=== PATIENT | female | born 1975 | race Caucasian/White ===

== ENCOUNTER 2016-07-08 20:36 | Emergency (ER) | payer OTHER ==
[~2016-07-08] VITALS: Ht 165.1 cm; Wt 68.2 kg
[~2016-07-08 20:36] MED LIST: ALBU8.5H IH; BENZ2TAB10 PO; DOCU-174 PO; FLUT44HFA IH; LURA40 PO; MONT10TA21 PO; OLAN15TA5 PO; OXYB5 PO; SODI650T PO; TOPI-37 PO
[2016-07-08] MEDS ORDERED: RISP0.5T13 PO (21:00)
[2016-07-08 23:25] LABS: APPEARANCE,URINE CLOUDY (CLEAR); GLUCOSE, URINE (UA) NEGATIVE (NEGATIVE); KETONES,URINE NEGATIVE (NEGATIVE); LEUKOCYTE ESTERASE ,URINE MODERATE (NEGATIVE); OCCULT BLOOD,URINE SMALL (NEGATIVE); PH,URINE 6.5 (5.0-8.0); PROTEIN,URINE NEGATIVE (NEGATIVE)
[2016-07-08 23:26] LABS: ADD UA MICROSCOPIC YES
[2016-07-08 23:35] LABS: SQUAMOUS EPITHELIAL CELL,UR Few /LPF (None Seen); WBC,URINE 26-50 /HPF (0-5)
[2016-07-09] MEDS ORDERED: NITROFURANTOIN/NITROFURAN MAC 100 MG CAPSULE [MACROBID] PO ONE (01:15)
[2016-07-09] MEDS ORDERED: PHENAZOPYRIDINE HCL 100 MG TABLET PO ONE (01:15)
[2016-07-09 01:28] VITALS: BP 132/75
== END 2016-07-09 01:45 | disposition home or self-care (01) ==
LOC: EMS 20:43
DX: N39.0 Urinary tract infection, site not specified (principal); F20.9 Schizophrenia, unspecified
CPT/HCPCS: 87086; 87147; 99284

== ENCOUNTER 2016-08-27 23:58 | Emergency (ER) | payer OTHER ==
[~2016-08-27] VITALS: Ht 162.6 cm; Wt 77.3 kg
[~2016-08-27 23:58] MED LIST changes: +RISP0.5T13 PO
[2016-08-28 01:51] VITALS: BP 129/74
== END 2016-08-28 02:19 | disposition home or self-care (01) ==
LOC: EMS 23:59
DX: F22 Delusional disorders (principal); F20.9 Schizophrenia, unspecified
CPT/HCPCS: 99283

== ENCOUNTER 2019-03-18 18:59 | Inpatient (IN) | payer MEDICAID ==
[~2019-03-18] VITALS: Ht 160 cm; Wt 90.5 kg
[~2019-03-18 18:59] MED LIST changes: -ALBU8.5H IH; +ALBU8.5H8 IH; -DOCU-174 PO; +DOCU100C34 PO; -RISP0.5T13 PO; +RISP0.5T61 PO; -TOPI-37 PO; +TOPI100T38 PO
[2019-03-18] MEDS ORDERED: LORazepam 2 MG TABLET PO PRN (19:45)
[2019-03-18] MEDS ORDERED: ZOLPIDEM TARTRATE 10 MG TABLET PO PRN (19:45)
[2019-03-18] MEDS ORDERED: HALOPERIDOL 5 MG TABLET PO PRN (19:45)
[2019-03-18] MEDS ORDERED: INFLUENZA VIRUS VACCINE QVS 2019-20 (3YR+)/PF 60 MCG/0.5 ML SYRINGE IM ONE (20:45)
[2019-03-18 21:02] VITALS: BP 131/75
[2019-03-19 00:53] VITALS: BP 142/86
[2019-03-19] MEDS ORDERED: MAG HYDROX/AL HYDROX/SIMETH ES 30 ML SUSPENSION UDCUP PO PRN (07:15)
[2019-03-19] MEDS ORDERED: LOPERAMIDE HCL 2 MG CAPSULE PO PRN (07:15)
[2019-03-19] MEDS ORDERED: BACITRACIN 28.4 GM OINTMENT TP PRN (07:15)
[2019-03-19] MEDS ORDERED: ALBUTEROL SULFATE HFA 90 MCG/PUFF 8 GM INHALER IH PRN (07:15)
[2019-03-19] MEDS ORDERED: ACETAMINOPHEN 325 MG TABLET PO PRN (07:15)
[2019-03-19] MEDS ORDERED: BENZOCAINE/MENTHOL LOZENGE MM PRN (07:15)
[2019-03-19] MEDS ORDERED: PETROLATUM,WHITE 28 GM JELLY TP PRN (07:15)
[2019-03-19] MEDS ORDERED: ONDANSETRON HCL 4 MG TABLET PO PRN (07:15)
[2019-03-19] MEDS ORDERED: CloNIDine HCL 0.1 MG TABLET PO PRN (07:15)
[2019-03-19] MEDS ORDERED: MAGNESIUM HYDROXIDE SUSPENSION 30 ML UDCUP PO PRN (07:15)
[2019-03-19 07:40] LABS: BASOPHILS % (AUTO) 0.6 % (0.0-2.0); EOSINOPHILS % (AUTO) 1.1 % (1.0-6.0); HEMATOCRIT 37.5 % (36-46); HEMOGLOBIN 12.6 g/dL (12.0-16.0); LYMPHOCYTES # (AUTO) 1.8 K/uL (1.0-4.8); LYMPHOCYTES % (AUTO) 17.8 % (22.0-44.0); MEAN CORPUSCULAR HEMOGLOBIN 29.3 pg (26.0-34.0); MEAN CORPUSCULAR HGB CONC 33.5 G/dL (31.0-37.0); MEAN CORPUSCULAR VOLUME 88 fL (80-100); MONOCYTES # (AUTO) 0.6 K/uL (0.1-1.0); MONOCYTES % (AUTO) 5.9 % (2.0-9.0); NEUTROPHILS # (AUTO) 7.6 K/uL (1.8-7.7); NEUTROPHILS % (AUTO) 74.6 % (40.0-70.0); PLATELET COUNT (AUTO) 404 K/uL (150-450); RED BLOOD CELL COUNT(AUTO) 4.28 MIL/uL (4.00-5.20); RED CELL DISTRIBUTION WIDTH 14.5 % (11.5-14.5)
[2019-03-19 08:10] VITALS: BP 128/68
[2019-03-19 08:14] LABS: ALANINE AMINOTRANSFERASE 25 U/L (12-78); ANION GAP 11 mmol/L (8-16); CARBON DIOXIDE 23 mmol/L (22-29); CHLORIDE 108 mmol/L (98-107); CHOLESTEROL 144 mg/dL (131-200); CREATININE 0.55 mg/dL (0.60-1.30); GLOMERULAR FILTR. RATE CALC > 60 mL/min (>60); POTASSIUM 4.1 mmol/L (3.5-5.1); SODIUM SERUM 142 mmol/L (136-145)
[2019-03-19 08:32] LABS: HEMOGLOBIN A1C 5.4 % (4.5-6.2)
[2019-03-19 08:37] LABS: ALBUMIN 3.2 g/dL (3.4-5.0); ALKALINE PHOSPHATASE 88 U/L (46-116); ASPARTATE AMINOTRANSFERASE 15 U/L (15-37); BILIRUBIN,TOTAL 0.3 mg/dL (0.1-1.0); CHOL/HDL RATIO 3.4 (3.9-5.7); FREE T4 (FREE THYROXINE) 1.22 ng/dL (0.76-1.46); GLUCOSE,RANDOM 92 mg/dL (70-110); HDL CHOLESTEROL 42 mg/dL (40-60); LDL CHOL (CALC.) 95 mg/dL (0-130); THYROID STIMULATING HORMONE 3.25 uIU/mL (0.36-3.74); TOTAL PROTEIN, SERUM 7.6 g/dL (6.4-8.2); TRIGLYCERIDES 33 mg/dL (15-150); UREA NITROGEN, BLOOD 9 mg/dL (7-18)
[2019-03-19] MEDS: BENZTROPINE MESYLATE 1 MG TABLET PO SCH ×2 (08:47→16:31)
[2019-03-19] MEDS: DOCUSATE SODIUM 100 MG CAPSULE PO SCH (08:47)
[2019-03-19] MEDS: OMEPRAZOLE 20 MG CAPSULE PO SCH (08:47)
[2019-03-19] MEDS: OXYBUTYNIN CHLORIDE 5 MG TABLET PO SCH (08:47)
[2019-03-19] MEDS: MONTELUKAST SODIUM 10 MG TABLET PO SCH (09:00)
[2019-03-19 20:36] VITALS: BP 133/90
[2019-03-19] MEDS: FLUTICASONE FUROATE 100 MCG/INH INHALER [14] IH SCH (21:00)
[2019-03-20 05:43] VITALS: BP 125/82
[2019-03-20 08:17] VITALS: BP 145/97
[2019-03-20] MEDS: MONTELUKAST SODIUM 10 MG TABLET PO SCH (08:33)
[2019-03-20] MEDS: BENZTROPINE MESYLATE 1 MG TABLET PO SCH ×2 (08:34→16:55)
[2019-03-20] MEDS: DOCUSATE SODIUM 100 MG CAPSULE PO SCH (08:34)
[2019-03-20] MEDS: OXYBUTYNIN CHLORIDE 5 MG TABLET PO SCH (08:34)
[2019-03-20] MEDS: OMEPRAZOLE 20 MG CAPSULE PO SCH (08:34)
[2019-03-20 14:02] VITALS: BP 128/80
[2019-03-20] MEDS: IBUPROFEN 600 MG TABLET PO PRN (14:02)
[2019-03-20 16:32] VITALS: BP 149/92
[2019-03-20 20:37] VITALS: BP 117/69
[2019-03-20] MEDS: FLUTICASONE FUROATE 100 MCG/INH INHALER [14] IH SCH (21:34)
[2019-03-21 00:49] VITALS: BP 120/82
[2019-03-21 08:05] VITALS: BP 114/89
[2019-03-21] MEDS: DOCUSATE SODIUM 100 MG CAPSULE PO SCH (08:17)
[2019-03-21] MEDS: OMEPRAZOLE 20 MG CAPSULE PO SCH (08:22)
[2019-03-21] MEDS: OXYBUTYNIN CHLORIDE 5 MG TABLET PO SCH (08:22)
[2019-03-21] MEDS: MONTELUKAST SODIUM 10 MG TABLET PO SCH (08:22)
[2019-03-21] MEDS: BENZTROPINE MESYLATE 1 MG TABLET PO SCH ×2 (08:22→17:07)
[2019-03-21] MEDS ORDERED: PALIPERIDONE PALMITATE 156 MG/ML SYRINGE IM ONE (09:00)
[2019-03-21 16:10] VITALS: BP 119/60
[2019-03-21] MEDS: FLUTICASONE FUROATE 100 MCG/INH INHALER [14] IH SCH (20:21)
[2019-03-21] MEDS ORDERED: INFLUENZA VIRUS VACCINE QVS 2019-20 (3YR+)/PF 60 MCG/0.5 ML SYRINGE IM ONE (20:45)
[2019-03-22 08:19] VITALS: BP 125/88
[2019-03-22] MEDS: BENZTROPINE MESYLATE 1 MG TABLET PO SCH ×2 (08:32→16:23)
[2019-03-22] MEDS: MONTELUKAST SODIUM 10 MG TABLET PO SCH (08:32)
[2019-03-22] MEDS: OMEPRAZOLE 20 MG CAPSULE PO SCH (08:32)
[2019-03-22] MEDS: DOCUSATE SODIUM 100 MG CAPSULE PO SCH (08:32)
[2019-03-22] MEDS: OXYBUTYNIN CHLORIDE 5 MG TABLET PO SCH (09:45)
[2019-03-22 16:01] VITALS: BP 122/80
[2019-03-22] MEDS: FLUTICASONE FUROATE 100 MCG/INH INHALER [14] IH SCH (20:22)
[2019-03-23 03:34] VITALS: BP 128/74
[2019-03-23] MEDS: BENZTROPINE MESYLATE 1 MG TABLET PO SCH ×2 (08:39→16:50)
[2019-03-23] MEDS: OXYBUTYNIN CHLORIDE 5 MG TABLET PO SCH (08:39)
[2019-03-23] MEDS: DOCUSATE SODIUM 100 MG CAPSULE PO SCH (08:39)
[2019-03-23] MEDS: OMEPRAZOLE 20 MG CAPSULE PO SCH (08:39)
[2019-03-23] MEDS: MONTELUKAST SODIUM 10 MG TABLET PO SCH (08:39)
[2019-03-23 08:45] VITALS: BP 136/92
[2019-03-23] MEDS: IBUPROFEN 600 MG TABLET PO PRN (09:50)
[2019-03-23] MEDS ORDERED: BENZ1TAB10 PO (13:57)
[2019-03-23] MEDS ORDERED: PALI156D IM (13:57)
[2019-03-23] MEDS ORDERED: DOCU-275 PO (13:58)
[2019-03-23] MEDS ORDERED: OMEP20 PO (13:58)
[2019-03-23] MEDS ORDERED: FLUT100B IH (14:00)
[2019-03-23 16:03] VITALS: BP 129/86
[2019-03-23] MEDS: FLUTICASONE FUROATE 100 MCG/INH INHALER [14] IH SCH (20:48)
[2019-03-24 02:36] VITALS: BP 143/96
[2019-03-24 08:17] VITALS: BP 135/93
[2019-03-24] MEDS: BENZTROPINE MESYLATE 1 MG TABLET PO SCH (09:15)
[2019-03-24] MEDS: OXYBUTYNIN CHLORIDE 5 MG TABLET PO SCH (09:16)
[2019-03-24] MEDS: OMEPRAZOLE 20 MG CAPSULE PO SCH (09:16)
[2019-03-24] MEDS: DOCUSATE SODIUM 100 MG CAPSULE PO SCH (09:16)
[2019-03-24] MEDS: MONTELUKAST SODIUM 10 MG TABLET PO SCH (09:16)
== END 2019-03-24 10:00 | disposition home or self-care (01) | DRG 750 ==
LOC: B3A 19:45 → B2S 03-20 19:20
PROVIDERS: ADMIT Psychiatry & Neurology Psychiatry; ATTEND Psychiatry & Neurology Psychiatry
DX: F25.9 Schizoaffective disorder, unspecified (principal); F41.9 Anxiety disorder, unspecified; K59.00 Constipation, unspecified; G47.00 Insomnia, unspecified; Z90.49 Acquired absence of other specified parts of digestive tract; Z98.890 Other specified postprocedural states; Z28.21 Immunization not carried out because of patient refusal
CPT/HCPCS: 83036; 84439; 84443; 90686; J3535

== ENCOUNTER 2019-04-24 14:56 | Inpatient (IN) | payer MEDICAID ==
[~2019-04-24] VITALS: Ht 160 cm; Wt 90.0 kg
[~2019-04-24 14:56] MED LIST changes: -ALBU8.5H8 IH; +BENZ1TAB10 PO; -BENZ2TAB10 PO; +DOCU-275 PO; -DOCU100C34 PO; +FLUT100B IH; -FLUT44HFA IH; -LURA40 PO; -OLAN15TA5 PO; +OMEP20 PO; +PALI156D IM; -RISP0.5T61 PO; -SODI650T PO; -TOPI100T38 PO
[2019-04-24] MEDS ORDERED: HALOPERIDOL 5 MG TABLET PO PRN (17:15)
[2019-04-24] MEDS ORDERED: ZOLPIDEM TARTRATE 10 MG TABLET PO PRN (17:15)
[2019-04-24] MEDS ORDERED: HALOPERIDOL LACTATE 5 MG/ML VIAL IM ONE (17:15)
[2019-04-24] MEDS ORDERED: DiphenhydrAMINE HCL 50 MG/ML VIAL IM ONE (17:15)
[2019-04-24] MEDS ORDERED: LORazepam 2 MG/ML VIAL IM ONE (17:15)
[2019-04-24] MEDS ORDERED: LORazepam 2 MG/ML VIAL ONE (17:37)
[2019-04-24] MEDS ORDERED: DiphenhydrAMINE HCL 50 MG/ML VIAL ONE (17:37)
[2019-04-24] MEDS ORDERED: HALOPERIDOL LACTATE 5 MG/ML VIAL ONE (17:37)
[2019-04-24 17:53] VITALS: BP 132/96
[2019-04-25 04:59] VITALS: BP 125/75
[2019-04-25 07:58] LABS: BASOPHILS % (AUTO) 0.7 % (0.0-2.0); EOSINOPHILS % (AUTO) 1.8 % (1.0-6.0); HEMATOCRIT 39.7 % (36-46); HEMOGLOBIN 13.5 g/dL (12.0-16.0); LYMPHOCYTES # (AUTO) 2.3 K/uL (1.0-4.8); LYMPHOCYTES % (AUTO) 22.5 % (22.0-44.0); MEAN CORPUSCULAR HEMOGLOBIN 29.8 pg (26.0-34.0); MEAN CORPUSCULAR HGB CONC 33.9 G/dL (31.0-37.0); MEAN CORPUSCULAR VOLUME 88 fL (80-100); MONOCYTES # (AUTO) 0.7 K/uL (0.1-1.0); MONOCYTES % (AUTO) 6.7 % (2.0-9.0); NEUTROPHILS # (AUTO) 6.9 K/uL (1.8-7.7); NEUTROPHILS % (AUTO) 68.3 % (40.0-70.0); PLATELET COUNT (AUTO) 445 K/uL (150-450); RED BLOOD CELL COUNT(AUTO) 4.51 MIL/uL (4.00-5.20); RED CELL DISTRIBUTION WIDTH 14.3 % (11.5-14.5)
[2019-04-25 08:31] VITALS: BP 111/70
[2019-04-25 08:45] LABS: HEMOGLOBIN A1C 5.4 % (3.8-5.6)
[2019-04-25 08:52] LABS: ALANINE AMINOTRANSFERASE 26 U/L (12-78); ALBUMIN 3.2 g/dL (3.4-5.0); ALKALINE PHOSPHATASE 85 U/L (46-116); ANION GAP 8 mmol/L (8-16); ASPARTATE AMINOTRANSFERASE 11 U/L (15-37); BILIRUBIN,TOTAL 0.3 mg/dL (0.1-1.0); CALCIUM, TOTAL 9.7 mg/dL (8.8-10.5); CARBON DIOXIDE 25 mmol/L (22-29); CHLORIDE 109 mmol/L (98-107); CHOL/HDL RATIO 4.6 (3.9-5.7); CHOLESTEROL 162 mg/dL (131-200); CREATININE 0.76 mg/dL (0.60-1.30); FREE T4 (FREE THYROXINE) 1.33 ng/dL (0.76-1.46); GLOMERULAR FILTR. RATE CALC > 60 mL/min (>60); GLUCOSE,RANDOM 93 mg/dL (70-110); HDL CHOLESTEROL 35 mg/dL (40-60); LDL CHOL (CALC.) 113 mg/dL (0-130); POTASSIUM 3.6 mmol/L (3.5-5.1); SODIUM SERUM 142 mmol/L (136-145); THYROID STIMULATING HORMONE 1.64 uIU/mL (0.36-3.74); TOTAL PROTEIN, SERUM 7.6 g/dL (6.4-8.2); TRIGLYCERIDES 69 mg/dL (15-150); UREA NITROGEN, BLOOD 10 mg/dL (7-18)
[2019-04-25] MEDS ORDERED: BENZOCAINE/MENTHOL LOZENGE MM PRN (09:30)
[2019-04-25] MEDS ORDERED: CloNIDine HCL 0.1 MG TABLET PO PRN (09:30)
[2019-04-25] MEDS ORDERED: MAGNESIUM HYDROXIDE SUSPENSION 30 ML UDCUP PO PRN (09:30)
[2019-04-25] MEDS ORDERED: PETROLATUM,WHITE 28 GM JELLY TP PRN (09:30)
[2019-04-25] MEDS ORDERED: ALBUTEROL SULFATE HFA 90 MCG/PUFF 8 GM INHALER IH PRN (09:30)
[2019-04-25] MEDS ORDERED: ACETAMINOPHEN 325 MG TABLET PO PRN (09:30)
[2019-04-25] MEDS ORDERED: ONDANSETRON HCL 4 MG TABLET PO PRN (09:30)
[2019-04-25] MEDS ORDERED: MAG HYDROX/AL HYDROX/SIMETH ES 30 ML SUSPENSION UDCUP PO PRN (09:30)
[2019-04-25] MEDS ORDERED: LOPERAMIDE HCL 2 MG CAPSULE PO PRN (09:30)
[2019-04-25] MEDS ORDERED: BACITRACIN 28.4 GM OINTMENT TP PRN (09:30)
[2019-04-25 16:25] VITALS: BP 125/86
[2019-04-25 20:32] VITALS: BP 118/77
[2019-04-25] MEDS: IBUPROFEN 600 MG TABLET PO PRN (20:57)
[2019-04-25] MEDS: FLUTICASONE FUROATE 100 MCG/INH INHALER [14] IH SCH (21:00)
[2019-04-26 05:49] VITALS: BP 110/70
[2019-04-26 08:20] VITALS: BP 137/75
[2019-04-26] MEDS: OMEPRAZOLE 20 MG CAPSULE PO SCH (08:24)
[2019-04-26] MEDS: DOCUSATE SODIUM 100 MG CAPSULE PO SCH (08:24)
[2019-04-26] MEDS: MONTELUKAST SODIUM 10 MG TABLET PO SCH (08:24)
[2019-04-26] MEDS: OXYBUTYNIN CHLORIDE 5 MG TABLET PO SCH (08:24)
[2019-04-26] MEDS: LORazepam 2 MG TABLET PO PRN (08:34)
[2019-04-26 16:42] VITALS: BP 145/100
[2019-04-26] MEDS: FLUTICASONE FUROATE 100 MCG/INH INHALER [14] IH SCH (21:23)
[2019-04-27 05:39] VITALS: BP 120/72
[2019-04-27] MEDS: DOCUSATE SODIUM 100 MG CAPSULE PO SCH (08:14)
[2019-04-27] MEDS: MONTELUKAST SODIUM 10 MG TABLET PO SCH (08:14)
[2019-04-27] MEDS: OMEPRAZOLE 20 MG CAPSULE PO SCH (08:14)
[2019-04-27] MEDS: OXYBUTYNIN CHLORIDE 5 MG TABLET PO SCH (08:15)
[2019-04-27] MEDS: LORazepam 2 MG TABLET PO PRN (08:16)
[2019-04-27 08:39] VITALS: BP 117/80
[2019-04-27 16:14] VITALS: BP 126/74
[2019-04-27 16:19] VITALS: BP 126/74
[2019-04-27] MEDS: FLUTICASONE FUROATE 100 MCG/INH INHALER [14] IH SCH (20:30)
[2019-04-27] MEDS: IBUPROFEN 600 MG TABLET PO PRN (21:07)
[2019-04-27 21:08] VITALS: BP 128/86
[2019-04-28 05:14] VITALS: BP 112/75
[2019-04-28] MEDS: OXYBUTYNIN CHLORIDE 5 MG TABLET PO SCH (08:12)
[2019-04-28] MEDS: DOCUSATE SODIUM 100 MG CAPSULE PO SCH (08:12)
[2019-04-28] MEDS: OMEPRAZOLE 20 MG CAPSULE PO SCH (08:12)
[2019-04-28] MEDS: MONTELUKAST SODIUM 10 MG TABLET PO SCH (08:12)
[2019-04-28 08:40] VITALS: BP 144/75
[2019-04-28 13:36] VITALS: BP 127/90
[2019-04-28] MEDS ORDERED: RISPC50 IM (15:30)
[2019-04-28 17:25] VITALS: BP 145/95
== END 2019-04-28 17:50 | disposition home or self-care (01) | DRG 750 ==
LOC: B3A 17:16
PROVIDERS: ADMIT Psychiatry & Neurology Psychiatry; ATTEND Psychiatry & Neurology Psychiatry
DX: F25.9 Schizoaffective disorder, unspecified (principal); F41.9 Anxiety disorder, unspecified; G47.00 Insomnia, unspecified; K59.00 Constipation, unspecified
CPT/HCPCS: 83036; 84439; 84443; 87081; J1200; J1630; J2060

== ENCOUNTER 2019-05-14 00:17 | Inpatient (IN) | payer MEDICAID, OTHER ==
[~2019-05-14] VITALS: Ht 160 cm; Wt 86.6 kg
[~2019-05-14 00:17] MED LIST changes: -BENZ1TAB10 PO; -FLUT100B IH; -PALI156D IM; +RISPC50 IM
[2019-05-14] MEDS ORDERED: MULT-723 PO (00:30)
[2019-05-14] MEDS ORDERED: OMEG-136 PO (00:30)
[2019-05-14] MEDS ORDERED: OXYB5XL PO (00:30)
[2019-05-14] MEDS ORDERED: BENZ1TAB10 PO (00:30)
[2019-05-14] MEDS ORDERED: LEVE500T8 PO (00:30)
[2019-05-14] MEDS ORDERED: VIT1TABL66 PO (00:30)
[2019-05-14] MEDS ORDERED: MONT4GRA2 PO (00:30)
[2019-05-14] MEDS ORDERED: OMEP20 PO (00:30)
[2019-05-14 01:03] LABS: BASOPHILS % (AUTO) 0.8 % (0.0-2.0); EOSINOPHILS % (AUTO) 1.2 % (1.0-6.0); HEMATOCRIT 36.3 % (36-46); HEMOGLOBIN 12.4 g/dL (12.0-16.0); LYMPHOCYTES # (AUTO) 1.4 K/uL (1.0-4.8); LYMPHOCYTES % (AUTO) 14.3 % (22.0-44.0); MEAN CORPUSCULAR HEMOGLOBIN 29.4 pg (26.0-34.0); MEAN CORPUSCULAR HGB CONC 34.1 G/dL (31.0-37.0); MEAN CORPUSCULAR VOLUME 86 fL (80-100); MONOCYTES # (AUTO) 0.6 K/uL (0.1-1.0); MONOCYTES % (AUTO) 6.1 % (2.0-9.0); NEUTROPHILS # (AUTO) 7.8 K/uL (1.8-7.7); NEUTROPHILS % (AUTO) 77.6 % (40.0-70.0); PLATELET COUNT (AUTO) 411 K/uL (150-450); RED BLOOD CELL COUNT(AUTO) 4.22 MIL/uL (4.00-5.20); RED CELL DISTRIBUTION WIDTH 14.3 % (11.5-14.5)
[2019-05-14 01:10] LABS: ANION GAP 7 mmol/L (8-16); CALCIUM, TOTAL 8.6 mg/dL (8.8-10.5); CARBON DIOXIDE 26 mmol/L (22-29); CHLORIDE 104 mmol/L (98-107); CREATININE 1.19 mg/dL (0.60-1.30); GLOMERULAR FILTR. RATE CALC 50 mL/min (>60); GLUCOSE,RANDOM 143 mg/dL (70-110); POTASSIUM 3.3 mmol/L (3.5-5.1); SODIUM SERUM 137 mmol/L (136-145); UREA NITROGEN, BLOOD 9 mg/dL (7-18)
[2019-05-14 01:16] LABS: ALANINE AMINOTRANSFERASE 36 U/L (12-78); ALBUMIN 3.3 g/dL (3.4-5.0); ALKALINE PHOSPHATASE 86 U/L (46-116); ASPARTATE AMINOTRANSFERASE 21 U/L (15-37); BILIRUBIN,TOTAL 0.2 mg/dL (0.1-1.0); TOTAL PROTEIN, SERUM 7.2 g/dL (6.4-8.2)
[2019-05-14] MEDS ORDERED: POTASSIUM CHLORIDE 20 MEQ ER TABLET PO ONE (02:15)
[2019-05-14 06:00] VITALS: BP 101/90
[2019-05-14] MEDS: LORazepam 2 MG TABLET PO PRN (06:57)
[2019-05-14] MEDS: HALOPERIDOL 5 MG TABLET PO PRN (06:57)
[2019-05-14] MEDS ORDERED: CloNIDine HCL 0.1 MG TABLET PO PRN (08:30)
[2019-05-14] MEDS ORDERED: BENZOCAINE/MENTHOL LOZENGE MM PRN (08:30)
[2019-05-14] MEDS ORDERED: ALBUTEROL SULFATE HFA 90 MCG/PUFF 8 GM INHALER IH PRN (08:30)
[2019-05-14] MEDS ORDERED: MAGNESIUM HYDROXIDE SUSPENSION 30 ML UDCUP PO PRN (08:30)
[2019-05-14] MEDS ORDERED: PETROLATUM,WHITE 28 GM JELLY TP PRN (08:30)
[2019-05-14] MEDS ORDERED: ONDANSETRON HCL 4 MG TABLET PO PRN (08:30)
[2019-05-14] MEDS ORDERED: LOPERAMIDE HCL 2 MG CAPSULE PO PRN (08:30)
[2019-05-14] MEDS ORDERED: OMEPRAZOLE 20 MG CAPSULE PO PRN (08:30)
[2019-05-14] MEDS ORDERED: DOCUSATE SODIUM 100 MG CAPSULE PO PRN (08:30)
[2019-05-14] MEDS ORDERED: BACITRACIN 28.4 GM OINTMENT TP PRN (08:30)
[2019-05-14 08:44] VITALS: BP 120/72
[2019-05-14] MEDS: LevETIRAcetam 500 MG TABLET PO SCH ×2 (09:36→16:25)
[2019-05-14] MEDS: MONTELUKAST SODIUM 10 MG TABLET PO SCH (10:40)
[2019-05-14] MEDS: OXYBUTYNIN CHLORIDE 5 MG ER TABLET PO SCH (10:40)
[2019-05-14 16:17] VITALS: BP 129/78
[2019-05-15 04:44] VITALS: BP 106/93
[2019-05-15] MEDS: OXYBUTYNIN CHLORIDE 5 MG ER TABLET PO SCH (08:27)
[2019-05-15] MEDS: BENZTROPINE MESYLATE 1 MG TABLET PO SCH ×2 (08:27→16:42)
[2019-05-15] MEDS: MONTELUKAST SODIUM 10 MG TABLET PO SCH (08:27)
[2019-05-15 08:28] VITALS: BP 145/74
[2019-05-15] MEDS: LevETIRAcetam 500 MG TABLET PO SCH ×2 (08:28→16:42)
[2019-05-15] MEDS: RisperiDONE MICROSPHERES 50 MG/2 ML SYRINGE IM SCH (09:00)
[2019-05-15] MEDS: OMEPRAZOLE 20 MG CAPSULE PO SCH (09:04)
[2019-05-15] MEDS: LORazepam 2 MG TABLET PO PRN (09:04)
[2019-05-15 14:27] VITALS: BP 134/82
[2019-05-15 16:08] VITALS: BP 145/70
[2019-05-16 05:21] VITALS: BP 132/68
[2019-05-16 08:00] VITALS: BP 112/80
[2019-05-16] MEDS: BENZTROPINE MESYLATE 1 MG TABLET PO SCH ×2 (08:16→16:52)
[2019-05-16] MEDS: LevETIRAcetam 500 MG TABLET PO SCH ×2 (08:17→16:52)
[2019-05-16] MEDS: MONTELUKAST SODIUM 10 MG TABLET PO SCH (08:17)
[2019-05-16] MEDS: OMEPRAZOLE 20 MG CAPSULE PO SCH (08:17)
[2019-05-16] MEDS: OXYBUTYNIN CHLORIDE 5 MG ER TABLET PO SCH (08:17)
[2019-05-16] MEDS: LORazepam 2 MG TABLET PO PRN (08:18)
[2019-05-16] MEDS: RisperiDONE MICROSPHERES 50 MG/2 ML SYRINGE IM SCH (12:49)
[2019-05-16 16:44] VITALS: BP 130/70
[2019-05-17 05:27] VITALS: BP 125/64
[2019-05-17 08:01] LABS: CHOL/HDL RATIO 3.9 (3.9-5.7)
[2019-05-17 08:28] VITALS: BP 126/92
[2019-05-17] MEDS: OMEPRAZOLE 20 MG CAPSULE PO SCH (08:54)
[2019-05-17] MEDS: OXYBUTYNIN CHLORIDE 5 MG ER TABLET PO SCH (08:54)
[2019-05-17] MEDS: LevETIRAcetam 500 MG TABLET PO SCH ×2 (08:54→17:00)
[2019-05-17] MEDS: BENZTROPINE MESYLATE 1 MG TABLET PO SCH ×2 (08:55→17:00)
[2019-05-17] MEDS: MONTELUKAST SODIUM 10 MG TABLET PO SCH (08:55)
[2019-05-17 16:32] VITALS: BP 128/91
[2019-05-17] MEDS: ZOLPIDEM TARTRATE 10 MG TABLET PO PRN (20:33)
[2019-05-18 05:06] VITALS: BP 140/88
[2019-05-18 08:07] VITALS: BP 124/84
[2019-05-18] MEDS: MONTELUKAST SODIUM 10 MG TABLET PO SCH (08:36)
[2019-05-18] MEDS: OMEPRAZOLE 20 MG CAPSULE PO SCH (08:36)
[2019-05-18] MEDS: OXYBUTYNIN CHLORIDE 5 MG ER TABLET PO SCH (08:36)
[2019-05-18] MEDS: BENZTROPINE MESYLATE 1 MG TABLET PO SCH ×2 (08:36→16:39)
[2019-05-18] MEDS: LevETIRAcetam 500 MG TABLET PO SCH ×2 (08:36→16:39)
[2019-05-18 16:14] VITALS: BP 138/86
[2019-05-18] MEDS: LORazepam 2 MG TABLET PO PRN (16:39)
[2019-05-19 06:29] VITALS: BP 114/84
[2019-05-19 08:00] VITALS: BP 110/74
[2019-05-19] MEDS: BENZTROPINE MESYLATE 1 MG TABLET PO SCH ×2 (08:24→16:46)
[2019-05-19] MEDS: OXYBUTYNIN CHLORIDE 5 MG ER TABLET PO SCH (08:25)
[2019-05-19] MEDS: MONTELUKAST SODIUM 10 MG TABLET PO SCH (08:25)
[2019-05-19] MEDS: OMEPRAZOLE 20 MG CAPSULE PO SCH (08:25)
[2019-05-19] MEDS: LevETIRAcetam 500 MG TABLET PO SCH ×2 (08:25→16:46)
[2019-05-19] MEDS: LORazepam 2 MG TABLET PO PRN (08:26)
[2019-05-19] MEDS: HALOPERIDOL 5 MG TABLET PO PRN (09:32)
[2019-05-20 05:04] VITALS: BP 104/66
[2019-05-20 07:54] LABS: BAND NEUTROPHILS % (MANUAL) 0 % (0-5)
[2019-05-20 07:57] LABS: HEMATOCRIT 40.2 % (36-46); HEMOGLOBIN 13.3 g/dL (12.0-16.0); MEAN CORPUSCULAR HEMOGLOBIN 28.9 pg (26.0-34.0); MEAN CORPUSCULAR HGB CONC 33.1 G/dL (31.0-37.0); MEAN CORPUSCULAR VOLUME 88 fL (80-100); PLATELET COUNT (AUTO) 462 K/uL (150-450); RED BLOOD CELL COUNT(AUTO) 4.59 MIL/uL (4.00-5.20); RED CELL DISTRIBUTION WIDTH 14.7 % (11.5-14.5)
[2019-05-20 08:08] LABS: ANION GAP 9 mmol/L (8-16); CALCIUM, TOTAL 8.7 mg/dL (8.8-10.5); CARBON DIOXIDE 25 mmol/L (22-29); CHLORIDE 106 mmol/L (98-107); CREATININE 0.76 mg/dL (0.60-1.30); GLOMERULAR FILTR. RATE CALC > 60 mL/min (>60); GLUCOSE,RANDOM 94 mg/dL (70-110); PHOSPHORUS 3.2 mg/dL (2.5-4.9); POTASSIUM 4.1 mmol/L (3.5-5.1); SODIUM SERUM 140 mmol/L (136-145); UREA NITROGEN, BLOOD 8 mg/dL (7-18)
[2019-05-20] MEDS: BENZTROPINE MESYLATE 1 MG TABLET PO SCH ×2 (08:22→16:22)
[2019-05-20] MEDS: LevETIRAcetam 500 MG TABLET PO SCH ×2 (08:22→16:22)
[2019-05-20] MEDS: OMEPRAZOLE 20 MG CAPSULE PO SCH (08:22)
[2019-05-20] MEDS: OXYBUTYNIN CHLORIDE 5 MG ER TABLET PO SCH (08:23)
[2019-05-20] MEDS: LORazepam 2 MG TABLET PO PRN (08:23)
[2019-05-20] MEDS: MONTELUKAST SODIUM 10 MG TABLET PO SCH (08:23)
[2019-05-20 08:30] VITALS: BP 112/76
[2019-05-20] MEDS: HALOPERIDOL 5 MG TABLET PO PRN (09:25)
[2019-05-20 09:40] LABS: EOSINOPHILS % (MANUAL) 1 % (1-6); LYMPHOCYTES % (MANUAL) 24 % (22-44); MONOCYTES % (MANUAL) 3 % (2-9); SEGMENTED NEUTROPHILS % 72 % (40-70)
[2019-05-20 16:30] VITALS: BP 116/79
[2019-05-21 05:50] VITALS: BP 135/80
[2019-05-21] MEDS: ASPIRIN 81 MG EC TABLET PO SCH (08:23)
[2019-05-21] MEDS: LevETIRAcetam 500 MG TABLET PO SCH ×2 (08:24→16:43)
[2019-05-21] MEDS: OMEPRAZOLE 20 MG CAPSULE PO SCH (08:24)
[2019-05-21] MEDS: BENZTROPINE MESYLATE 1 MG TABLET PO SCH ×2 (08:25→16:43)
[2019-05-21] MEDS: OXYBUTYNIN CHLORIDE 5 MG ER TABLET PO SCH (08:25)
[2019-05-21] MEDS: MONTELUKAST SODIUM 10 MG TABLET PO SCH (08:25)
[2019-05-21 08:26] VITALS: BP 118/72
[2019-05-21] MEDS: LORazepam 2 MG TABLET PO PRN (08:26)
[2019-05-21] MEDS: HALOPERIDOL 5 MG TABLET PO PRN (10:34)
[2019-05-21 16:00] VITALS: BP 125/78
[2019-05-21] MEDS: MAG HYDROX/AL HYDROX/SIMETH ES 30 ML SUSPENSION UDCUP PO PRN (18:08)
[2019-05-21] MEDS: ZOLPIDEM TARTRATE 10 MG TABLET PO PRN (20:58)
[2019-05-22 02:05] VITALS: BP 118/78
[2019-05-22] MEDS: IBUPROFEN 600 MG TABLET PO PRN ×2 (02:07→10:57)
[2019-05-22 05:22] VITALS: BP 124/66
[2019-05-22] MEDS: OMEPRAZOLE 20 MG CAPSULE PO SCH (08:19)
[2019-05-22] MEDS: LevETIRAcetam 500 MG TABLET PO SCH ×2 (08:19→16:18)
[2019-05-22] MEDS: MONTELUKAST SODIUM 10 MG TABLET PO SCH (08:19)
[2019-05-22] MEDS: BENZTROPINE MESYLATE 1 MG TABLET PO SCH ×2 (08:19→16:18)
[2019-05-22] MEDS: OXYBUTYNIN CHLORIDE 5 MG ER TABLET PO SCH (08:19)
[2019-05-22] MEDS: ASPIRIN 81 MG EC TABLET PO SCH (08:20)
[2019-05-22] MEDS: LORazepam 2 MG TABLET PO PRN (09:21)
[2019-05-22 16:07] VITALS: BP 130/95
[2019-05-22] MEDS: ACETAMINOPHEN 325 MG TABLET PO PRN (17:56)
[2019-05-23 01:30] VITALS: BP 143/94
[2019-05-23] MEDS: IBUPROFEN 600 MG TABLET PO PRN ×3 (01:39→18:17)
[2019-05-23 08:59] VITALS: BP 119/72
[2019-05-23] MEDS: MONTELUKAST SODIUM 10 MG TABLET PO SCH (09:27)
[2019-05-23] MEDS: LevETIRAcetam 500 MG TABLET PO SCH ×2 (09:27→16:21)
[2019-05-23] MEDS: OXYBUTYNIN CHLORIDE 5 MG ER TABLET PO SCH (09:27)
[2019-05-23] MEDS: ASPIRIN 81 MG EC TABLET PO SCH (09:27)
[2019-05-23] MEDS: OMEPRAZOLE 20 MG CAPSULE PO SCH (09:27)
[2019-05-23] MEDS: BENZTROPINE MESYLATE 1 MG TABLET PO SCH ×2 (09:28→16:21)
[2019-05-23] MEDS: HALOPERIDOL 5 MG TABLET PO PRN (09:28)
[2019-05-23] MEDS: LORazepam 2 MG TABLET PO PRN (09:28)
[2019-05-23] MEDS ORDERED: LORazepam 2 MG/ML VIAL IM ONE (10:45)
[2019-05-23] MEDS ORDERED: HALOPERIDOL LACTATE 5 MG/ML VIAL IM ONE (10:45)
[2019-05-23 16:13] VITALS: BP 133/75
[2019-05-24 04:23] VITALS: BP 128/84
[2019-05-24] MEDS: OMEPRAZOLE 20 MG CAPSULE PO SCH (08:26)
[2019-05-24] MEDS: LevETIRAcetam 500 MG TABLET PO SCH ×2 (08:26→16:26)
[2019-05-24] MEDS: ASPIRIN 81 MG EC TABLET PO SCH (08:26)
[2019-05-24] MEDS: MONTELUKAST SODIUM 10 MG TABLET PO SCH (08:26)
[2019-05-24] MEDS: BENZTROPINE MESYLATE 1 MG TABLET PO SCH ×2 (08:26→16:26)
[2019-05-24] MEDS: LORazepam 2 MG TABLET PO PRN (08:26)
[2019-05-24] MEDS: OXYBUTYNIN CHLORIDE 5 MG ER TABLET PO SCH (08:26)
[2019-05-24 08:32] VITALS: BP 136/93
[2019-05-24] MEDS: HALOPERIDOL 5 MG TABLET PO PRN (08:58)
[2019-05-24 16:24] VITALS: BP 121/80
[2019-05-24 19:50] VITALS: BP 128/76
[2019-05-24] MEDS: ACETAMINOPHEN 325 MG TABLET PO PRN (19:50)
[2019-05-25 06:06] VITALS: BP 135/88
[2019-05-25] MEDS: ASPIRIN 81 MG EC TABLET PO SCH (08:06)
[2019-05-25] MEDS: OXYBUTYNIN CHLORIDE 5 MG ER TABLET PO SCH (08:06)
[2019-05-25] MEDS: MONTELUKAST SODIUM 10 MG TABLET PO SCH (08:06)
[2019-05-25] MEDS: LevETIRAcetam 500 MG TABLET PO SCH ×2 (08:06→16:06)
[2019-05-25] MEDS: OMEPRAZOLE 20 MG CAPSULE PO SCH (08:07)
[2019-05-25 08:19] VITALS: BP 142/105
[2019-05-25] MEDS: ACETAMINOPHEN 325 MG TABLET PO PRN ×2 (08:37→16:41)
[2019-05-25] MEDS: LORazepam 2 MG TABLET PO PRN ×2 (08:37→16:07)
[2019-05-25] MEDS: BENZTROPINE MESYLATE 1 MG TABLET PO SCH ×2 (09:30→16:06)
[2019-05-25] MEDS: IBUPROFEN 600 MG TABLET PO PRN (10:44)
[2019-05-25] MEDS: HALOPERIDOL 5 MG TABLET PO PRN (16:06)
[2019-05-25 16:17] VITALS: BP_SYST 131; BP_SYST 98; BP_DIAS 131; BP_DIAS 83
[2019-05-26 05:12] VITALS: BP 125/78
[2019-05-26] MEDS: ACETAMINOPHEN 325 MG TABLET PO PRN ×2 (05:38→21:43)
[2019-05-26 08:20] VITALS: BP 135/68
[2019-05-26] MEDS: LevETIRAcetam 500 MG TABLET PO SCH ×2 (08:22→16:06)
[2019-05-26] MEDS: BENZTROPINE MESYLATE 1 MG TABLET PO SCH ×2 (08:22→16:06)
[2019-05-26] MEDS: OMEPRAZOLE 20 MG CAPSULE PO SCH (08:23)
[2019-05-26] MEDS: ASPIRIN 81 MG EC TABLET PO SCH (08:23)
[2019-05-26] MEDS: LORazepam 2 MG TABLET PO PRN (08:23)
[2019-05-26] MEDS: HALOPERIDOL 5 MG TABLET PO PRN (08:43)
[2019-05-26] MEDS: MONTELUKAST SODIUM 10 MG TABLET PO SCH (09:10)
[2019-05-26] MEDS: OXYBUTYNIN CHLORIDE 5 MG ER TABLET PO SCH (09:10)
[2019-05-26 16:05] VITALS: BP 115/77
[2019-05-26] MEDS: IBUPROFEN 600 MG TABLET PO PRN (17:16)
[2019-05-27] MEDS: IBUPROFEN 600 MG TABLET PO PRN ×2 (02:15→22:45)
[2019-05-27 02:18] VITALS: BP 132/70
[2019-05-27] MEDS: MONTELUKAST SODIUM 10 MG TABLET PO SCH (08:21)
[2019-05-27] MEDS: ASPIRIN 81 MG EC TABLET PO SCH (08:21)
[2019-05-27] MEDS: OMEPRAZOLE 20 MG CAPSULE PO SCH (08:22)
[2019-05-27] MEDS: BENZTROPINE MESYLATE 1 MG TABLET PO SCH ×2 (08:22→16:19)
[2019-05-27] MEDS: OXYBUTYNIN CHLORIDE 5 MG ER TABLET PO SCH (08:22)
[2019-05-27] MEDS: LevETIRAcetam 500 MG TABLET PO SCH ×2 (08:22→16:19)
[2019-05-27] MEDS: LORazepam 2 MG TABLET PO PRN ×2 (08:23→16:19)
[2019-05-27 10:48] VITALS: BP 128/75
[2019-05-27] MEDS: HALOPERIDOL 5 MG TABLET PO PRN (16:19)
[2019-05-27] MEDS: ACETAMINOPHEN 325 MG TABLET PO PRN (16:19)
[2019-05-27 17:00] VITALS: BP 109/64
[2019-05-27] MEDS: MAG HYDROX/AL HYDROX/SIMETH ES 30 ML SUSPENSION UDCUP PO PRN (18:36)
[2019-05-28] MEDS: ACETAMINOPHEN 325 MG TABLET PO PRN (02:07)
[2019-05-28 02:48] VITALS: BP 112/77
[2019-05-28 08:12] VITALS: BP 144/85
[2019-05-28] MEDS: LevETIRAcetam 500 MG TABLET PO SCH ×2 (08:46→16:18)
[2019-05-28] MEDS: OMEPRAZOLE 20 MG CAPSULE PO SCH (08:47)
[2019-05-28] MEDS: BENZTROPINE MESYLATE 1 MG TABLET PO SCH ×2 (08:47→16:19)
[2019-05-28] MEDS: ASPIRIN 81 MG EC TABLET PO SCH (08:48)
[2019-05-28] MEDS: LORazepam 2 MG TABLET PO PRN ×2 (08:48→16:19)
[2019-05-28] MEDS: MONTELUKAST SODIUM 10 MG TABLET PO SCH (08:50)
[2019-05-28] MEDS: OXYBUTYNIN CHLORIDE 5 MG ER TABLET PO SCH (08:50)
[2019-05-28] MEDS: HALOPERIDOL 5 MG TABLET PO PRN (09:05)
[2019-05-28 16:12] VITALS: BP 132/80
[2019-05-29 00:22] VITALS: BP 118/61
[2019-05-29] MEDS: IBUPROFEN 600 MG TABLET PO PRN (00:45)
[2019-05-29 08:23] VITALS: BP 129/78
[2019-05-29] MEDS: OMEPRAZOLE 20 MG CAPSULE PO SCH (09:08)
[2019-05-29] MEDS: ASPIRIN 81 MG EC TABLET PO SCH (09:08)
[2019-05-29] MEDS: LevETIRAcetam 500 MG TABLET PO SCH ×2 (09:08→16:51)
[2019-05-29] MEDS: BENZTROPINE MESYLATE 1 MG TABLET PO SCH ×2 (09:08→16:51)
[2019-05-29] MEDS: LORazepam 2 MG TABLET PO PRN ×2 (09:09→16:51)
[2019-05-29] MEDS: OXYBUTYNIN CHLORIDE 5 MG ER TABLET PO SCH (09:09)
[2019-05-29] MEDS: MONTELUKAST SODIUM 10 MG TABLET PO SCH (09:09)
[2019-05-29] MEDS: RisperiDONE MICROSPHERES 50 MG/2 ML SYRINGE IM SCH (12:48)
[2019-05-29 16:32] VITALS: BP 113/76
[2019-05-29] MEDS: HALOPERIDOL 5 MG TABLET PO PRN (16:51)
[2019-05-30 01:49] VITALS: BP 107/72
[2019-05-30] MEDS: ACETAMINOPHEN 325 MG TABLET PO PRN (05:49)
[2019-05-30 08:50] VITALS: BP 115/74
[2019-05-30] MEDS: LORazepam 2 MG TABLET PO PRN ×2 (09:04→17:57)
[2019-05-30] MEDS: ASPIRIN 81 MG EC TABLET PO SCH (09:04)
[2019-05-30] MEDS: BENZTROPINE MESYLATE 1 MG TABLET PO SCH ×2 (09:04→16:39)
[2019-05-30] MEDS: LevETIRAcetam 500 MG TABLET PO SCH ×2 (09:04→16:39)
[2019-05-30] MEDS: OMEPRAZOLE 20 MG CAPSULE PO SCH (09:04)
[2019-05-30] MEDS: MONTELUKAST SODIUM 10 MG TABLET PO SCH (09:06)
[2019-05-30] MEDS: OXYBUTYNIN CHLORIDE 5 MG ER TABLET PO SCH (09:06)
[2019-05-30] MEDS: HALOPERIDOL 5 MG TABLET PO PRN ×2 (09:19→17:58)
[2019-05-30 16:22] VITALS: BP 110/56
[2019-05-30] MEDS: MAG HYDROX/AL HYDROX/SIMETH ES 30 ML SUSPENSION UDCUP PO PRN (16:39)
[2019-05-30] MEDS ORDERED: LORazepam 2 MG/ML VIAL IM ONE (21:00)
[2019-05-30] MEDS ORDERED: DiphenhydrAMINE HCL 50 MG/ML VIAL IM ONE (21:00)
[2019-05-30] MEDS ORDERED: HALOPERIDOL LACTATE 5 MG/ML VIAL IM ONE (21:00)
[2019-05-31 04:53] VITALS: BP 112/64
[2019-05-31 08:38] VITALS: BP 113/67
[2019-05-31] MEDS: LevETIRAcetam 500 MG TABLET PO SCH ×2 (09:21→16:44)
[2019-05-31] MEDS: OMEPRAZOLE 20 MG CAPSULE PO SCH (09:21)
[2019-05-31] MEDS: BENZTROPINE MESYLATE 1 MG TABLET PO SCH ×2 (09:21→16:44)
[2019-05-31] MEDS: ASPIRIN 81 MG EC TABLET PO SCH (09:21)
[2019-05-31] MEDS: HALOPERIDOL 5 MG TABLET PO PRN ×2 (09:21→16:44)
[2019-05-31] MEDS: MONTELUKAST SODIUM 10 MG TABLET PO SCH (09:22)
[2019-05-31] MEDS: ACETAMINOPHEN 325 MG TABLET PO PRN (09:22)
[2019-05-31] MEDS: OXYBUTYNIN CHLORIDE 5 MG ER TABLET PO SCH (09:22)
[2019-05-31 16:08] VITALS: BP 127/88
[2019-05-31] MEDS: MAG HYDROX/AL HYDROX/SIMETH ES 30 ML SUSPENSION UDCUP PO PRN (20:48)
[2019-06-01 00:08] VITALS: BP 101/61
[2019-06-01 00:11] VITALS: BP 127/95
[2019-06-01 08:30] VITALS: BP 140/109
[2019-06-01] MEDS: ASPIRIN 81 MG EC TABLET PO SCH (08:42)
[2019-06-01] MEDS: LevETIRAcetam 500 MG TABLET PO SCH ×2 (08:42→16:43)
[2019-06-01] MEDS: OMEPRAZOLE 20 MG CAPSULE PO SCH (08:42)
[2019-06-01] MEDS: BENZTROPINE MESYLATE 1 MG TABLET PO SCH ×2 (08:42→16:43)
[2019-06-01] MEDS: OXYBUTYNIN CHLORIDE 5 MG ER TABLET PO SCH (08:43)
[2019-06-01] MEDS: MONTELUKAST SODIUM 10 MG TABLET PO SCH (08:43)
[2019-06-01 08:48] VITALS: BP 119/90
[2019-06-01 16:12] VITALS: BP 128/78
[2019-06-02] MEDS: MAG HYDROX/AL HYDROX/SIMETH ES 30 ML SUSPENSION UDCUP PO PRN (00:04)
[2019-06-02 00:12] VITALS: BP 137/97
[2019-06-02] MEDS: ACETAMINOPHEN 325 MG TABLET PO PRN (02:19)
[2019-06-02 08:28] VITALS: BP 158/115
[2019-06-02] MEDS: BENZTROPINE MESYLATE 1 MG TABLET PO SCH ×2 (08:36→16:15)
[2019-06-02] MEDS: HALOPERIDOL 5 MG TABLET PO PRN ×3 (08:37→20:05)
[2019-06-02] MEDS: ASPIRIN 81 MG EC TABLET PO SCH (08:37)
[2019-06-02] MEDS: LevETIRAcetam 500 MG TABLET PO SCH ×2 (08:37→16:15)
[2019-06-02] MEDS: MONTELUKAST SODIUM 10 MG TABLET PO SCH (08:37)
[2019-06-02] MEDS: OXYBUTYNIN CHLORIDE 5 MG ER TABLET PO SCH (08:37)
[2019-06-02] MEDS: OMEPRAZOLE 20 MG CAPSULE PO SCH (08:37)
[2019-06-02 14:00] VITALS: BP 132/81
[2019-06-02] MEDS: IBUPROFEN 600 MG TABLET PO PRN ×2 (14:27→20:08)
[2019-06-02 17:33] VITALS: BP 123/77
[2019-06-03 04:15] VITALS: BP 105/68
[2019-06-03] MEDS: OMEPRAZOLE 20 MG CAPSULE PO SCH (08:05)
[2019-06-03] MEDS: LevETIRAcetam 500 MG TABLET PO SCH ×2 (08:06→16:54)
[2019-06-03] MEDS: MONTELUKAST SODIUM 10 MG TABLET PO SCH (08:06)
[2019-06-03] MEDS: BENZTROPINE MESYLATE 1 MG TABLET PO SCH ×2 (08:07→16:54)
[2019-06-03] MEDS: OXYBUTYNIN CHLORIDE 5 MG ER TABLET PO SCH (08:07)
[2019-06-03] MEDS: ASPIRIN 81 MG EC TABLET PO SCH (08:07)
[2019-06-03] MEDS: HALOPERIDOL 5 MG TABLET PO PRN ×2 (08:08→16:54)
[2019-06-03 08:25] VITALS: BP 136/62
[2019-06-03 16:16] VITALS: BP 134/86
[2019-06-03] MEDS: IBUPROFEN 600 MG TABLET PO PRN (16:54)
[2019-06-04 04:44] VITALS: BP 136/98
[2019-06-04] MEDS: IBUPROFEN 600 MG TABLET PO PRN (05:18)
[2019-06-04 08:21] VITALS: BP 154/71
[2019-06-04] MEDS: ASPIRIN 81 MG EC TABLET PO SCH (08:43)
[2019-06-04] MEDS: LevETIRAcetam 500 MG TABLET PO SCH ×2 (08:43→16:40)
[2019-06-04] MEDS: BENZTROPINE MESYLATE 1 MG TABLET PO SCH ×2 (08:43→16:40)
[2019-06-04] MEDS: OXYBUTYNIN CHLORIDE 5 MG ER TABLET PO SCH (08:43)
[2019-06-04] MEDS: HALOPERIDOL 5 MG TABLET PO PRN ×2 (08:43→17:32)
[2019-06-04] MEDS: MONTELUKAST SODIUM 10 MG TABLET PO SCH (08:43)
[2019-06-04] MEDS: OMEPRAZOLE 20 MG CAPSULE PO SCH (08:45)
[2019-06-04 16:30] VITALS: BP 141/75
[2019-06-04] MEDS: ACETAMINOPHEN 325 MG TABLET PO PRN (17:32)
[2019-06-05 03:31] VITALS: BP 128/72
[2019-06-05] MEDS: OMEPRAZOLE 20 MG CAPSULE PO SCH (08:50)
[2019-06-05] MEDS: LevETIRAcetam 500 MG TABLET PO SCH ×2 (08:51→16:46)
[2019-06-05] MEDS: OXYBUTYNIN CHLORIDE 5 MG ER TABLET PO SCH (08:51)
[2019-06-05] MEDS: ASPIRIN 81 MG EC TABLET PO SCH (08:51)
[2019-06-05] MEDS: MONTELUKAST SODIUM 10 MG TABLET PO SCH (08:51)
[2019-06-05] MEDS: BENZTROPINE MESYLATE 1 MG TABLET PO SCH ×2 (08:51→16:46)
[2019-06-05] MEDS: HALOPERIDOL 5 MG TABLET PO PRN ×2 (08:56→16:46)
[2019-06-05 09:00] VITALS: BP 123/77
[2019-06-05 20:32] VITALS: BP 133/62
[2019-06-06 04:38] VITALS: BP 133/80
[2019-06-06 08:28] VITALS: BP 123/78
[2019-06-06] MEDS: OMEPRAZOLE 20 MG CAPSULE PO SCH (08:54)
[2019-06-06] MEDS: ASPIRIN 81 MG EC TABLET PO SCH (08:54)
[2019-06-06] MEDS: MONTELUKAST SODIUM 10 MG TABLET PO SCH (08:54)
[2019-06-06] MEDS: LevETIRAcetam 500 MG TABLET PO SCH ×2 (08:54→17:59)
[2019-06-06] MEDS: OXYBUTYNIN CHLORIDE 5 MG ER TABLET PO SCH (08:54)
[2019-06-06] MEDS: BENZTROPINE MESYLATE 1 MG TABLET PO SCH ×2 (08:54→17:59)
[2019-06-06 18:01] VITALS: BP 107/65
[2019-06-07 06:55] VITALS: BP 100/68
[2019-06-07 08:35] VITALS: BP 106/85
[2019-06-07] MEDS: LevETIRAcetam 500 MG TABLET PO SCH ×2 (09:14→16:30)
[2019-06-07] MEDS: BENZTROPINE MESYLATE 1 MG TABLET PO SCH ×2 (09:14→16:30)
[2019-06-07] MEDS: ASPIRIN 81 MG EC TABLET PO SCH (09:14)
[2019-06-07] MEDS: OXYBUTYNIN CHLORIDE 5 MG ER TABLET PO SCH (09:15)
[2019-06-07] MEDS: OMEPRAZOLE 20 MG CAPSULE PO SCH (09:15)
[2019-06-07] MEDS: MONTELUKAST SODIUM 10 MG TABLET PO SCH (09:16)
[2019-06-07] MEDS: HALOPERIDOL 5 MG TABLET PO PRN (16:30)
[2019-06-07 18:25] VITALS: BP 135/86
[2019-06-08] MEDS: IBUPROFEN 600 MG TABLET PO PRN (04:07)
[2019-06-08 04:28] VITALS: BP 139/85
[2019-06-08] MEDS: OMEPRAZOLE 20 MG CAPSULE PO SCH (08:27)
[2019-06-08] MEDS: MONTELUKAST SODIUM 10 MG TABLET PO SCH (08:27)
[2019-06-08] MEDS: ASPIRIN 81 MG EC TABLET PO SCH (08:27)
[2019-06-08] MEDS: LevETIRAcetam 500 MG TABLET PO SCH ×2 (08:27→17:38)
[2019-06-08] MEDS: OXYBUTYNIN CHLORIDE 5 MG ER TABLET PO SCH (08:27)
[2019-06-08] MEDS: BENZTROPINE MESYLATE 1 MG TABLET PO SCH ×2 (08:27→17:38)
[2019-06-08] MEDS: HALOPERIDOL 5 MG TABLET PO PRN ×2 (08:28→17:38)
[2019-06-08 08:36] VITALS: BP 120/70
[2019-06-08 16:16] VITALS: BP 118/69
[2019-06-09 04:34] VITALS: BP 126/79
[2019-06-09] MEDS: ACETAMINOPHEN 325 MG TABLET PO PRN (04:53)
[2019-06-09 08:38] VITALS: BP 119/61
[2019-06-09] MEDS: BENZTROPINE MESYLATE 1 MG TABLET PO SCH ×2 (09:00→17:17)
[2019-06-09] MEDS: LevETIRAcetam 500 MG TABLET PO SCH ×2 (09:00→17:17)
[2019-06-09] MEDS: OXYBUTYNIN CHLORIDE 5 MG ER TABLET PO SCH (09:00)
[2019-06-09] MEDS: ASPIRIN 81 MG EC TABLET PO SCH (09:00)
[2019-06-09] MEDS: OMEPRAZOLE 20 MG CAPSULE PO SCH (09:00)
[2019-06-09] MEDS: MONTELUKAST SODIUM 10 MG TABLET PO SCH (09:00)
[2019-06-09 17:53] VITALS: BP 114/86
[2019-06-10 04:52] VITALS: BP 122/74
[2019-06-10] MEDS: BENZTROPINE MESYLATE 1 MG TABLET PO SCH ×2 (08:29→17:01)
[2019-06-10] MEDS: HALOPERIDOL 5 MG TABLET PO PRN ×2 (08:29→17:01)
[2019-06-10] MEDS: ASPIRIN 81 MG EC TABLET PO SCH (08:29)
[2019-06-10] MEDS: OMEPRAZOLE 20 MG CAPSULE PO SCH (08:29)
[2019-06-10] MEDS: LevETIRAcetam 500 MG TABLET PO SCH ×2 (08:29→17:01)
[2019-06-10] MEDS: MONTELUKAST SODIUM 10 MG TABLET PO SCH (08:30)
[2019-06-10] MEDS: OXYBUTYNIN CHLORIDE 5 MG ER TABLET PO SCH (08:30)
[2019-06-10 08:55] VITALS: BP 144/95
[2019-06-10 16:55] VITALS: BP 117/72
[2019-06-10] MEDS: ACETAMINOPHEN 325 MG TABLET PO PRN (17:05)
[2019-06-11 05:10] VITALS: BP 111/77
[2019-06-11 07:12] LABS: BAND NEUTROPHILS % (MANUAL) 0 % (0-5)
[2019-06-11 07:14] LABS: HEMATOCRIT 42.2 % (36-46); HEMOGLOBIN 13.5 g/dL (12.0-16.0); MEAN CORPUSCULAR HGB CONC 32.1 G/dL (31.0-37.0); MEAN CORPUSCULAR VOLUME 87 fL (80-100); PLATELET COUNT (AUTO) 492 K/uL (150-450); RED BLOOD CELL COUNT(AUTO) 4.83 MIL/uL (4.00-5.20); RED CELL DISTRIBUTION WIDTH 14.5 % (11.5-14.5)
[2019-06-11 07:48] LABS: ANION GAP 14 mmol/L (8-16); CARBON DIOXIDE 21 mmol/L (22-29); CHLORIDE 106 mmol/L (98-107); CREATININE 0.59 mg/dL (0.60-1.30); GLOMERULAR FILTR. RATE CALC > 60 mL/min (>60); GLUCOSE,RANDOM 94 mg/dL (70-110); PHOSPHORUS 3.4 mg/dL (2.5-4.9); POTASSIUM 3.5 mmol/L (3.5-5.1); SODIUM SERUM 141 mmol/L (136-145); UREA NITROGEN, BLOOD 9 mg/dL (7-18)
[2019-06-11 08:02] LABS: EOSINOPHILS % (MANUAL) 2 % (1-6); LYMPHOCYTES % (MANUAL) 23 % (22-44); MONOCYTES % (MANUAL) 4 % (2-9); SEGMENTED NEUTROPHILS % 71 % (40-70)
[2019-06-11] MEDS: OMEPRAZOLE 20 MG CAPSULE PO SCH (08:53)
[2019-06-11] MEDS: LevETIRAcetam 500 MG TABLET PO SCH ×2 (08:53→16:06)
[2019-06-11] MEDS: ASPIRIN 81 MG EC TABLET PO SCH (08:54)
[2019-06-11] MEDS: BENZTROPINE MESYLATE 1 MG TABLET PO SCH ×2 (08:54→16:06)
[2019-06-11] MEDS: OXYBUTYNIN CHLORIDE 5 MG ER TABLET PO SCH (08:56)
[2019-06-11] MEDS: MONTELUKAST SODIUM 10 MG TABLET PO SCH (08:57)
[2019-06-11 09:00] VITALS: BP 119/75
[2019-06-11] MEDS: HALOPERIDOL 5 MG TABLET PO PRN (16:06)
[2019-06-11 16:10] VITALS: BP 126/89
[2019-06-12] MEDS: ACETAMINOPHEN 325 MG TABLET PO PRN (00:41)
[2019-06-12 01:35] VITALS: BP 125/90
[2019-06-12 08:23] VITALS: BP 130/77
[2019-06-12] MEDS: LevETIRAcetam 500 MG TABLET PO SCH ×2 (08:35→16:10)
[2019-06-12] MEDS: ASPIRIN 81 MG EC TABLET PO SCH (08:35)
[2019-06-12] MEDS: OMEPRAZOLE 20 MG CAPSULE PO SCH (08:36)
[2019-06-12] MEDS: BENZTROPINE MESYLATE 1 MG TABLET PO SCH ×2 (08:36→16:10)
[2019-06-12] MEDS: HALOPERIDOL 5 MG TABLET PO PRN ×2 (08:36→16:10)
[2019-06-12] MEDS: OXYBUTYNIN CHLORIDE 5 MG ER TABLET PO SCH (08:36)
[2019-06-12] MEDS: MONTELUKAST SODIUM 10 MG TABLET PO SCH (08:36)
[2019-06-12] MEDS: RisperiDONE MICROSPHERES 50 MG/2 ML SYRINGE IM SCH (09:20)
[2019-06-12 16:44] VITALS: BP 140/92
[2019-06-12] MEDS: IBUPROFEN 600 MG TABLET PO PRN (17:45)
[2019-06-12] MEDS ORDERED: LORazepam 2 MG/ML VIAL ONE (19:16)
[2019-06-12] MEDS ORDERED: LORazepam 2 MG/ML VIAL IM ONE (19:30)
[2019-06-13 03:20] VITALS: BP 124/73
[2019-06-13 08:10] VITALS: BP 109/65
[2019-06-13] MEDS: BENZTROPINE MESYLATE 1 MG TABLET PO SCH ×2 (08:25→16:28)
[2019-06-13] MEDS: OXYBUTYNIN CHLORIDE 5 MG ER TABLET PO SCH (08:25)
[2019-06-13] MEDS: MONTELUKAST SODIUM 10 MG TABLET PO SCH (08:25)
[2019-06-13] MEDS: LevETIRAcetam 500 MG TABLET PO SCH ×2 (08:25→16:28)
[2019-06-13] MEDS: OMEPRAZOLE 20 MG CAPSULE PO SCH (08:25)
[2019-06-13] MEDS: ASPIRIN 81 MG EC TABLET PO SCH (08:25)
[2019-06-13] MEDS: HALOPERIDOL 5 MG TABLET PO PRN (08:26)
[2019-06-13 17:38] VITALS: BP 106/60
[2019-06-14 03:20] VITALS: BP 101/62
[2019-06-14 08:19] VITALS: BP 128/74
[2019-06-14] MEDS: OMEPRAZOLE 20 MG CAPSULE PO SCH (09:29)
[2019-06-14] MEDS: LevETIRAcetam 500 MG TABLET PO SCH ×2 (09:29→16:48)
[2019-06-14] MEDS: ASPIRIN 81 MG EC TABLET PO SCH (09:29)
[2019-06-14] MEDS: BENZTROPINE MESYLATE 1 MG TABLET PO SCH ×2 (09:29→16:48)
[2019-06-14] MEDS: OXYBUTYNIN CHLORIDE 5 MG ER TABLET PO SCH (09:30)
[2019-06-14] MEDS: MONTELUKAST SODIUM 10 MG TABLET PO SCH (09:30)
[2019-06-14 16:00] VITALS: BP 138/68
[2019-06-15 01:36] VITALS: BP 123/90
[2019-06-15] MEDS: IBUPROFEN 600 MG TABLET PO PRN (01:55)
[2019-06-15] MEDS: MONTELUKAST SODIUM 10 MG TABLET PO SCH (08:44)
[2019-06-15] MEDS: OXYBUTYNIN CHLORIDE 5 MG ER TABLET PO SCH (08:44)
[2019-06-15] MEDS: LevETIRAcetam 500 MG TABLET PO SCH ×2 (08:45→16:21)
[2019-06-15] MEDS: BENZTROPINE MESYLATE 1 MG TABLET PO SCH ×2 (08:45→16:21)
[2019-06-15] MEDS: OMEPRAZOLE 20 MG CAPSULE PO SCH (08:45)
[2019-06-15] MEDS: ASPIRIN 81 MG EC TABLET PO SCH (08:46)
[2019-06-15 16:30] VITALS: BP 133/70
[2019-06-16 02:11] VITALS: BP 115/78
[2019-06-16] MEDS: IBUPROFEN 600 MG TABLET PO PRN (02:26)
[2019-06-16 03:25] VITALS: BP 118/76
[2019-06-16 08:15] VITALS: BP 100/61
[2019-06-16] MEDS: BENZTROPINE MESYLATE 1 MG TABLET PO SCH ×2 (08:24→16:26)
[2019-06-16] MEDS: ASPIRIN 81 MG EC TABLET PO SCH (08:25)
[2019-06-16] MEDS: OMEPRAZOLE 20 MG CAPSULE PO SCH (08:25)
[2019-06-16 16:16] VITALS: BP 117/75
[2019-06-17 01:37] VITALS: BP 76/17
[2019-06-17] MEDS: BENZTROPINE MESYLATE 1 MG TABLET PO SCH ×2 (08:14→16:27)
[2019-06-17] MEDS: ASPIRIN 81 MG EC TABLET PO SCH (08:14)
[2019-06-17] MEDS: OMEPRAZOLE 20 MG CAPSULE PO SCH (08:14)
[2019-06-17 08:32] VITALS: BP 103/67
[2019-06-17 17:35] VITALS: BP 120/89
[2019-06-18 04:47] VITALS: BP 110/75
[2019-06-18 08:22] VITALS: BP 103/60
[2019-06-18] MEDS: BENZTROPINE MESYLATE 1 MG TABLET PO SCH ×2 (09:03→16:43)
[2019-06-18] MEDS: OMEPRAZOLE 20 MG CAPSULE PO SCH (09:03)
[2019-06-18] MEDS: ASPIRIN 81 MG EC TABLET PO SCH (09:03)
[2019-06-18 16:10] VITALS: BP 125/70
[2019-06-19 03:29] VITALS: BP 120/65
[2019-06-19] MEDS: OMEPRAZOLE 20 MG CAPSULE PO SCH (08:45)
[2019-06-19] MEDS: ASPIRIN 81 MG EC TABLET PO SCH (08:45)
[2019-06-19] MEDS: BENZTROPINE MESYLATE 1 MG TABLET PO SCH ×2 (08:45→17:13)
[2019-06-19 16:00] VITALS: BP 101/73
[2019-06-20 01:45] VITALS: BP 124/82
[2019-06-20 08:23] VITALS: BP 108/68
[2019-06-20] MEDS: OMEPRAZOLE 20 MG CAPSULE PO SCH (08:59)
[2019-06-20] MEDS: ASPIRIN 81 MG EC TABLET PO SCH (09:00)
[2019-06-20] MEDS: BENZTROPINE MESYLATE 1 MG TABLET PO SCH ×2 (09:00→17:39)
[2019-06-20 16:12] VITALS: BP 115/69
[2019-06-21 00:58] VITALS: BP 111/70
[2019-06-21] MEDS: BENZTROPINE MESYLATE 1 MG TABLET PO SCH ×2 (08:25→17:37)
[2019-06-21] MEDS: OMEPRAZOLE 20 MG CAPSULE PO SCH (08:25)
[2019-06-21] MEDS: ASPIRIN 81 MG EC TABLET PO SCH (08:25)
[2019-06-21 08:28] VITALS: BP 119/76
[2019-06-21 16:00] VITALS: BP 135/84
[2019-06-22 01:53] VITALS: BP 115/76
[2019-06-22 08:30] VITALS: BP 112/78
[2019-06-22] MEDS: OMEPRAZOLE 20 MG CAPSULE PO SCH (08:36)
[2019-06-22] MEDS: ASPIRIN 81 MG EC TABLET PO SCH (08:36)
[2019-06-22] MEDS: BENZTROPINE MESYLATE 1 MG TABLET PO SCH ×2 (08:36→18:05)
[2019-06-22 17:42] VITALS: BP 115/70
[2019-06-23 02:23] VITALS: BP 101/62
[2019-06-23] MEDS: BENZTROPINE MESYLATE 1 MG TABLET PO SCH ×2 (08:14→17:24)
[2019-06-23] MEDS: ASPIRIN 81 MG EC TABLET PO SCH (08:14)
[2019-06-23] MEDS: OMEPRAZOLE 20 MG CAPSULE PO SCH (08:14)
[2019-06-23] MEDS ORDERED: BENZOCAINE/MENTHOL LOZENGE MM PRN (11:00)
[2019-06-23] MEDS ORDERED: ACETAMINOPHEN 325 MG TABLET PO PRN (11:00)
[2019-06-23] MEDS ORDERED: MAG HYDROX/AL HYDROX/SIMETH ES 30 ML SUSPENSION UDCUP PO PRN (11:00)
[2019-06-23] MEDS ORDERED: IBUPROFEN 600 MG TABLET PO PRN (11:00)
[2019-06-23] MEDS ORDERED: ALBUTEROL SULFATE HFA 90 MCG/PUFF 8 GM INHALER IH PRN (11:00)
[2019-06-23] MEDS ORDERED: BACITRACIN 28.4 GM OINTMENT TP PRN (11:00)
[2019-06-23] MEDS ORDERED: ONDANSETRON HCL 4 MG TABLET PO PRN (11:00)
[2019-06-23] MEDS ORDERED: MAGNESIUM HYDROXIDE SUSPENSION 30 ML UDCUP PO PRN (11:00)
[2019-06-23] MEDS ORDERED: CloNIDine HCL 0.1 MG TABLET PO PRN (11:00)
[2019-06-23] MEDS ORDERED: LOPERAMIDE HCL 2 MG CAPSULE PO PRN (11:00)
[2019-06-23] MEDS ORDERED: PETROLATUM,WHITE 28 GM JELLY TP PRN (11:00)
[2019-06-23 16:30] VITALS: BP 134/99
[2019-06-23] MEDS: OMEGA-3/DHA/EPA/FISH OIL 1,000 MG CAPSULE PO SCH (17:24)
[2019-06-24 04:47] VITALS: BP 120/86
[2019-06-24 08:16] VITALS: BP 133/73
[2019-06-24] MEDS: MULTIVITAMINS WITH MINERALS, THERAPEUTIC TABLET PO SCH (09:23)
[2019-06-24] MEDS: ASPIRIN 81 MG EC TABLET PO SCH (09:23)
[2019-06-24] MEDS: DOCUSATE SODIUM 100 MG CAPSULE PO SCH (09:24)
[2019-06-24] MEDS: BENZTROPINE MESYLATE 1 MG TABLET PO SCH ×2 (09:24→16:26)
[2019-06-24] MEDS: OMEPRAZOLE 20 MG CAPSULE PO SCH (09:24)
[2019-06-24] MEDS: OMEGA-3/DHA/EPA/FISH OIL 1,000 MG CAPSULE PO SCH ×2 (09:28→16:26)
[2019-06-24 16:25] VITALS: BP 121/69
[2019-06-25 01:27] VITALS: BP 110/64
[2019-06-25 08:12] VITALS: BP 110/63
[2019-06-25] MEDS: ASPIRIN 81 MG EC TABLET PO SCH (08:40)
[2019-06-25] MEDS: OMEGA-3/DHA/EPA/FISH OIL 1,000 MG CAPSULE PO SCH (08:40)
[2019-06-25] MEDS: MULTIVITAMINS WITH MINERALS, THERAPEUTIC TABLET PO SCH (08:40)
[2019-06-25] MEDS: BENZTROPINE MESYLATE 1 MG TABLET PO SCH (08:41)
[2019-06-25] MEDS: DOCUSATE SODIUM 100 MG CAPSULE PO SCH (08:41)
[2019-06-25] MEDS: OMEPRAZOLE 20 MG CAPSULE PO SCH (08:41)
[2019-06-25] MEDS ORDERED: ASPI-1111 PO (13:16)
[2019-06-25 16:57] VITALS: BP 100/60
== END 2019-06-25 16:25 | disposition home or self-care (01) | DRG 750 ==
LOC: EMS 00:18 → B3A 03:30
PROVIDERS: ADMIT Psychiatry & Neurology Psychiatry; ATTEND Psychiatry & Neurology Psychiatry
DX: F25.0 Schizoaffective disorder, bipolar type (principal); F79 Unspecified intellectual disabilities; E87.6 Hypokalemia; G40.909 Epilepsy, unspecified, not intractable, without status epilepticus; F41.9 Anxiety disorder, unspecified; G47.00 Insomnia, unspecified; R00.0 Tachycardia, unspecified; R73.9 Hyperglycemia, unspecified; J45.909 Unspecified asthma, uncomplicated; K59.00 Constipation, unspecified; N32.81 Overactive bladder; Z91.410 Personal history of adult physical and sexual abuse; Z91.5 Personal history of self-harm; Z79.899 Other long term (current) drug therapy; Z90.49 Acquired absence of other specified parts of digestive tract
CPT/HCPCS: 83735; 84100; 85007; 87081; G0480; G0482; J1200; J1630; J2060; J2794

== ENCOUNTER 2019-12-04 00:28 | Emergency (ER) | payer MEDICAID, OTHER ==
[~2019-12-04] VITALS: Ht 160 cm; Wt 84.5 kg
[~2019-12-04 00:28] MED LIST changes: +ASPI-1111 PO; +BENZ1TAB10 PO; -DOCU-275 PO; +LEVE500T8 PO; -MONT10TA21 PO; +OMEG-136 PO; -OMEP20 PO; -OXYB5 PO; +OXYB5XL PO
[2019-12-04 01:21] LABS: BASOPHILS % (AUTO) 0.7 % (0.0-2.0); EOSINOPHILS % (AUTO) 1.8 % (1.0-6.0); HEMATOCRIT 41.9 % (36-46); HEMOGLOBIN 13.7 g/dL (12.0-16.0); LYMPHOCYTES # (AUTO) 1.9 K/uL (1.0-4.8); LYMPHOCYTES % (AUTO) 20.5 % (22.0-44.0); MEAN CORPUSCULAR HEMOGLOBIN 28.4 pg (26.0-34.0); MEAN CORPUSCULAR HGB CONC 32.8 G/dL (31.0-37.0); MEAN CORPUSCULAR VOLUME 87 fL (80-100); MONOCYTES # (AUTO) 0.5 K/uL (0.1-1.0); MONOCYTES % (AUTO) 5.6 % (2.0-9.0); NEUTROPHILS # (AUTO) 6.7 K/uL (1.8-7.7); NEUTROPHILS % (AUTO) 71.4 % (40.0-70.0); PLATELET COUNT (AUTO) 428 K/uL (150-450); RED BLOOD CELL COUNT(AUTO) 4.83 MIL/uL (4.00-5.20); RED CELL DISTRIBUTION WIDTH 14.6 % (11.5-14.5)
[2019-12-04 01:28] LABS: ANION GAP 6 mmol/L (8-16); CALCIUM, TOTAL 8.9 mg/dL (8.8-10.5); CARBON DIOXIDE 27 mmol/L (22-29); CHLORIDE 109 mmol/L (98-107); CREATININE 0.61 mg/dL (0.60-1.30); GLOMERULAR FILTR. RATE CALC > 60 mL/min (>60); GLUCOSE,RANDOM 120 mg/dL (70-110); POTASSIUM 3.7 mmol/L (3.5-5.1); SODIUM SERUM 142 mmol/L (136-145); UREA NITROGEN, BLOOD 8 mg/dL (7-18)
[2019-12-04 01:30] LABS: APPEARANCE,URINE CLEAR (CLEAR); BILIRUBIN,URINE NEGATIVE (NEGATIVE); GLUCOSE, URINE (UA) NEGATIVE (NEGATIVE); KETONES,URINE NEGATIVE (NEGATIVE); LEUKOCYTE ESTERASE ,URINE TRACE (NEGATIVE); NITRATE,URINE NEGATIVE (NEGATIVE); OCCULT BLOOD,URINE SMALL (NEGATIVE); PH,URINE 6.5 (5.0-8.0); PROTEIN,URINE NEGATIVE (NEGATIVE); UROBILINOGEN,URINE 0.2 mg/dL (<=1.0)
[2019-12-04 01:33] LABS: PROTHROMBIN TIME 10.3 SEC (9.4-11.6)
[2019-12-04 01:39] LABS: ALANINE AMINOTRANSFERASE 33 U/L (12-78); ALBUMIN 3.5 g/dL (3.4-5.0); ALKALINE PHOSPHATASE 94 U/L (46-116); ASPARTATE AMINOTRANSFERASE 20 U/L (15-37); BILIRUBIN,TOTAL 0.2 mg/dL (0.1-1.0); HCG,QUANTITATIVE 1 mIU/mL (0-6); TOTAL PROTEIN, SERUM 7.5 g/dL (6.4-8.2)
[2019-12-04 01:43] LABS: SQUAMOUS EPITHELIAL CELL,UR Few /LPF (None Seen)
[2019-12-04 01:44] LABS: BACTERIA,URINE Rare /HPF (None Seen)
[2019-12-04 02:30] VITALS: BP 129/76
== END 2019-12-04 02:35 | disposition home or self-care (01) ==
LOC: EMS 00:28
DX: N93.9 Abnormal uterine and vaginal bleeding, unspecified (principal); F20.9 Schizophrenia, unspecified; Z90.89 Acquired absence of other organs; Z79.82 Long term (current) use of aspirin
CPT/HCPCS: 86850; 86900; 86901

== ENCOUNTER 2023-03-28 18:44 | Emergency (ER) | payer OTHER ==
[~2023-03-28] VITALS: Ht 167.6 cm; Wt 84.1 kg
[~2023-03-28 18:44] MED LIST changes: +ACET650S24 GT; +AMIN30LI28 PO; +AMIO200T68 PO; -ASPI-1111 PO; +B CO1CAP6 PO; -BENZ1TAB10 PO; +BUDE0.5A NEB; +EPOE10I SQ; +FAMO20 PO; +HEPA500018 IVP; +HEPA500018 SQ; +LEVE500T20 GT; -LEVE500T8 PO; +MERO500P IV; +METO25 IVP; +MORP1AMP6 IVP; -OMEG-136 PO; -OXYB5XL PO; +PRED-549 PO; -RISPC50 IM
[2023-03-28] MEDS ORDERED: IBUPROFEN 600 MG TABLET PO ONE (19:45)
[2023-03-28] MEDS ORDERED: ACETAMINOPHEN 500 MG TABLET PO ONE (19:45)
[2023-03-28 20:00] LABS: COVID AG,FIA SOURCE NASAL SWAB
[2023-03-28 20:21] LABS: INFLUENZA TYPE A NEGATIVE FOR TYPE A (NEGATIVE)
[2023-03-28] MEDS ORDERED: IBUP-1492 PO (20:34)
[2023-03-28] MEDS ORDERED: ACET-3385 PO (20:34)
[2023-03-28 20:41] LABS: INFLUENZA TYPE B POSITIVE FOR TYPE B (NEGATIVE)
[2023-03-28 20:42] LABS: SARS-COV2 (COVID) ANTIGEN,FIA Positive (Negative)
[2023-03-28 20:58] VITALS: BP 136/76; PULSE 99; RESP 17; TEMP 98.2
== END 2023-03-28 21:37 | disposition home or self-care (01) ==
LOC: EMS 18:44
DX: U07.1 COVID-19 (principal); J10.1 Influenza due to other identified influenza virus with other respiratory manifestations; F20.9 Schizophrenia, unspecified; Z90.49 Acquired absence of other specified parts of digestive tract; Z90.89 Acquired absence of other organs
CPT/HCPCS: 87804; 99283

== ENCOUNTER 2023-11-14 20:09 | Emergency (ER) | payer OTHER ==
[~2023-11-14] VITALS: Ht 165.1 cm; Wt 104.5 kg
[~2023-11-14 20:09] MED LIST changes: +ACET-3385 PO; +EPOE10006 SQ; -EPOE10I SQ; +IBUP-1492 PO; +LEVE-71 GT; -LEVE500T20 GT
[2023-11-14 20:13] VITALS: BP 139/69; PULSE 96; RESP 16; TEMP 97.6; O2SAT 96
== END 2023-11-15 | disposition home or self-care (01) ==
LOC: EMS 20:09
DX: S00.83XA Contusion of other part of head, initial encounter (principal); S09.93XA Unspecified injury of face, initial encounter; F20.9 Schizophrenia, unspecified; K80.20 Calculus of gallbladder without cholecystitis without obstruction; Z87.440 Personal history of urinary (tract) infections; Z90.49 Acquired absence of other specified parts of digestive tract; Z90.89 Acquired absence of other organs; W19.XXXA Unspecified fall, initial encounter; Y93.89 Activity, other specified; Y92.89 Other specified places as the place of occurrence of the external cause; Y99.8 Other external cause status
CPT/HCPCS: 70450; 70486; 99284

== ENCOUNTER 2023-12-25 11:03 | Inpatient (IN) | payer OTHER ==
[~2023-12-25] VITALS: Ht 160 cm; Wt 102.3 kg
[2023-12-25] MEDS ORDERED: 0.9% SODIUM CHLORIDE 10 ML SYRINGE IVP PRN (11:15)
[2023-12-25] MEDS: SODIUM CHLORIDE 0.9% 3,050 ML IV ONE (11:23)
[2023-12-25 11:31] LABS: COVID AG,FIA SOURCE NASAL SWAB
[2023-12-25 11:37] LABS: BASOPHILS % (AUTO) 0.9 % (0.0-2.0); EOSINOPHILS % (AUTO) 0 % (1.0-6.0); HEMOGLOBIN 12.6 g/dL (12.0-16.0); LYMPHOCYTES # (AUTO) 1.1 K/uL (1.0-4.8); LYMPHOCYTES % (AUTO) 4.4 % (22.0-44.0); MEAN CORPUSCULAR HEMOGLOBIN 30.3 pg (26.0-34.0); MEAN CORPUSCULAR HGB CONC 33.3 G/dL (31.0-37.0); MEAN CORPUSCULAR VOLUME 91 fL (80-100); MONOCYTES # (AUTO) 2.9 K/uL (0.1-1.0); MONOCYTES % (AUTO) 12.1 % (2.0-9.0); NEUTROPHILS # (AUTO) 19.9 K/uL (1.8-7.7); NEUTROPHILS % (AUTO) 82.6 % (40.0-70.0); PLATELET COUNT (AUTO) 248 K/uL (150-450); RED BLOOD CELL COUNT(AUTO) 4.17 MIL/uL (4.00-5.20); RED CELL DISTRIBUTION WIDTH 14.5 % (11.5-14.5); WHITE BLOOD COUNT (AUTO) 24.1 K/uL (4.5-11.0)
[2023-12-25 11:51] LABS: ANION GAP 11 mmol/L (8-16); CALCIUM, TOTAL 8.2 mg/dL (8.8-10.5); CARBON DIOXIDE 22 mmol/L (22-29); CHLORIDE 102 mmol/L (98-107); CREATININE 0.82 mg/dL (0.60-1.30); GLOMERULAR FILTR. RATE CALC > 60 mL/min (>60); GLUCOSE,RANDOM 121 mg/dL (70-110); POTASSIUM 3.6 mmol/L (3.5-5.1); SODIUM SERUM 135 mmol/L (136-145); UREA NITROGEN, BLOOD 10 mg/dL (7-18)
[2023-12-25] MEDS: ACETAMINOPHEN 500 MG TABLET PO ONE (12:08)
[2023-12-25 12:09] LABS: LACTIC ACID 1.3 mmol/L (0.4-2.0)
[2023-12-25] MEDS: SODIUM CHLORIDE 0.9% 1,550 ML IV ONE (12:10)
[2023-12-25 12:14] LABS: SARS-COV2 (COVID) ANTIGEN,FIA Negative (Negative)
[2023-12-25 12:15] LABS: INFLUENZA TYPE A NEGATIVE FOR TYPE A (NEGATIVE); INFLUENZA TYPE B POSITIVE FOR TYPE B (NEGATIVE)
[2023-12-25] MEDS: CefTRIAXone 1 GM/DEXTROSE 50 ML IV ONE (12:15)
[2023-12-25 12:35] LABS: TROPONIN I-HIGH SENSITIVITY 7 ng/L (<51)
[2023-12-25] MEDS ORDERED: [UNRECOGNIZED DRUG - CODE] PO (13:04)
[2023-12-25] MEDS ORDERED: VIBE75TA PO (13:04)
[2023-12-25] MEDS ORDERED: LEVO50TA11 PO (13:04)
[2023-12-25] MEDS ORDERED: CHOL200074 PO (13:04)
[2023-12-25] MEDS ORDERED: RISP4TAB94 PO (13:04)
[2023-12-25] MEDS ORDERED: BENZ2TAB84 PO (13:04)
[2023-12-25] MEDS ORDERED: OLAN10TA74 PO (13:04)
[2023-12-25] MEDS ORDERED: DIVA-112 PO (13:04)
[2023-12-25 13:08] LABS: APPEARANCE,URINE CLEAR (CLEAR); BILIRUBIN,URINE NEGATIVE (NEGATIVE); COLOR,URINE LIGHT YELLOW (YELLOW); GLUCOSE, URINE (UA) NEGATIVE (NEGATIVE); KETONES,URINE NEGATIVE (NEGATIVE); LEUKOCYTE ESTERASE ,URINE MODERATE (NEGATIVE); NITRATE,URINE NEGATIVE (NEGATIVE); OCCULT BLOOD,URINE LARGE (NEGATIVE); PROTEIN,URINE NEGATIVE (NEGATIVE); SPECIFIC GRAVITIY, URINE 1.008 (1.003-1.030); UROBILINOGEN,URINE <=1.0 mg/dL (<=1.0)
[2023-12-25 13:12] LABS: BACTERIA,URINE Few /HPF (None Seen)
[2023-12-25 13:13] LABS: SQUAMOUS EPITHELIAL CELL,UR Few /LPF (None Seen)
[2023-12-25] MEDS ORDERED: ONDANSETRON HCL 4 MG/2 ML VIAL IVP PRN (14:15)
[2023-12-25] MEDS ORDERED: MAGNESIUM HYDROXIDE SUSPENSION 30 ML UDCUP PO PRN (14:15)
[2023-12-25] MEDS ORDERED: ZOLPIDEM TARTRATE 5 MG TABLET PO PRN (14:15)
[2023-12-25] MEDS ORDERED: GuaiFENesin/D-METHORPHAN [SUGAR-FREE] 200-20MG/10 ML SYRUP UDCUP PO PRN (14:15)
[2023-12-25] MEDS ORDERED: BISACODYL 10 MG RECTAL RECTAL SUPPOSITORY PR PRN (14:15)
[2023-12-25] MEDS ORDERED: ACETAMINOPHEN 325 MG TABLET PO PRN (14:15)
[2023-12-25] MEDS ORDERED: MORPHINE SULFATE 2 MG/ML SYRINGE IVP PRN (14:15)
[2023-12-25] MEDS ORDERED: HYDROCODONE/ACETAMINOPHEN 5-325 MG TABLET PO PRN (14:15)
[2023-12-25] MEDS ORDERED: BENZ-247 PO (14:27)
[2023-12-25] MEDS: OSELTAMIVIR PHOSPHATE 75 MG CAPSULE PO SCH (15:20)
[2023-12-25 16:22] VITALS: BP 116/65; PULSE 107; RESP 17; TEMP 98.7; O2SAT 98
[2023-12-25] MEDS: BENZTROPINE MESYLATE 1 MG TABLET PO SCH (16:36)
[2023-12-25] MEDS: HEPARIN SODIUM,PORCINE 5,000 UNITS/ML VIAL SQ SCH (16:37)
[2023-12-25] MEDS: DIVALPROEX SODIUM 500 MG DR TABLET PO SCH (20:50)
[2023-12-25] MEDS: OLANZapine 10 MG TABLET PO SCH (20:50)
[2023-12-25] MEDS: RisperiDONE 4 MG TABLET PO SCH (20:50)
[2023-12-26] VITALS (7 sets, daily range): BP systolic 104–140; BP diastolic 66–84; PULSE 100–107; RESP 18–20; TEMP 97.4–98.6; O2SAT 96–99
[2023-12-26] MEDS: LEVOTHYROXINE SODIUM 50 MCG TABLET PO SCH (05:43)
[2023-12-26] MEDS: PANTOPRAZOLE SODIUM 40 MG DR TABLET PO SCH (08:57)
[2023-12-26] MEDS: CHOLECALCIFEROL (VIT D3) 1,000 UNITS [25 MCG] TABLET PO SCH (08:58)
[2023-12-26] MEDS ORDERED: MISC MED-CONVERTED FROM AMBULATORY (Vibegron (Gemtesa) 75 MG) PO SCH (09:00)
[2023-12-26] MEDS: CefTRIAXone 1 GM/DEXTROSE 50 ML IV SCH (11:59)
[2023-12-26] MEDS: SODIUM CHLORIDE 0.9% 1,000 ML IV ONE (11:59)
[2023-12-27] VITALS (7 sets, daily range): BP systolic 113–133; BP diastolic 63–96; PULSE 91–107; RESP 16–22; TEMP 97.6–98.9; O2SAT 94–98
[2023-12-27 10:53] LABS: BASOPHILS % (AUTO) 0.4 % (0.0-2.0); EOSINOPHILS % (AUTO) 0.6 % (1.0-6.0); HEMATOCRIT 34.7 % (36-46); HEMOGLOBIN 11.5 g/dL (12.0-16.0); LYMPHOCYTES # (AUTO) 1.5 K/uL (1.0-4.8); LYMPHOCYTES % (AUTO) 13.5 % (22.0-44.0); MEAN CORPUSCULAR HEMOGLOBIN 30.4 pg (26.0-34.0); MEAN CORPUSCULAR HGB CONC 33.1 G/dL (31.0-37.0); MEAN CORPUSCULAR VOLUME 92 fL (80-100); MONOCYTES # (AUTO) 0.8 K/uL (0.1-1.0); MONOCYTES % (AUTO) 7.7 % (2.0-9.0); NEUTROPHILS # (AUTO) 8.4 K/uL (1.8-7.7); NEUTROPHILS % (AUTO) 77.8 % (40.0-70.0); PLATELET COUNT (AUTO) 246 K/uL (150-450); RED BLOOD CELL COUNT(AUTO) 3.78 MIL/uL (4.00-5.20); RED CELL DISTRIBUTION WIDTH 14.7 % (11.5-14.5); WHITE BLOOD COUNT (AUTO) 10.8 K/uL (4.5-11.0)
[2023-12-27] MEDS ORDERED: SODIUM CHLORIDE 0.9% 250 ML IV ONE (12:07)
[2023-12-27] MEDS: ALBUTEROL SULFATE 2.5 MG/0.5 ML NEB SOLUTION NEB PRN (17:32)
[2023-12-27] MEDS: IPRATROPIUM BROMIDE 0.5 MG/2.5 ML NEB SOLUTION NEB PRN (17:32)
[2023-12-28] VITALS (7 sets, daily range): BP systolic 115–137; BP diastolic 75–87; PULSE 84–99; RESP 18; TEMP 97.7–98.3; O2SAT 95–99
[2023-12-28] MEDS ORDERED: CIPR250T6 PO ×2 (09:50→10:44)
[2023-12-28] MEDS ORDERED: SODIUM CHLORIDE 0.9% 500 ML IV ONE (12:09)
== END 2023-12-28 14:02 | disposition home or self-care (01) | DRG 720 ==
LOC: EMS 11:03 → EDH 14:06 → 5S 15:45 → 6S 12-27 16:36
PROVIDERS: ADMIT Hospitalist; ATTEND Hospitalist
DX: A41.9 Sepsis, unspecified organism (principal); E44.0 Moderate protein-calorie malnutrition; E03.9 Hypothyroidism, unspecified; Z20.822 Contact with and (suspected) exposure to COVID-19; J10.1 Influenza due to other identified influenza virus with other respiratory manifestations; E66.01 Morbid (severe) obesity due to excess calories; F20.9 Schizophrenia, unspecified; N39.0 Urinary tract infection, site not specified; Z68.41 Body mass index [BMI] 40.0-44.9, adult; Z90.49 Acquired absence of other specified parts of digestive tract; R62.50 Unspecified lack of expected normal physiological development in childhood
CPT/HCPCS: 71045; 80048; 81001; 83605; 84145; 84484; 85025; 85610; 87040; 87077; 87086; 87186; 87804; 93005; 94640; 97116; 97163; 99285; J0696; J1644; J2405; J7040; J7050; 36415-L1; 36415-TC; J7613